=== PATIENT | female | born 1960 | race Caucasian/White ===

== ENCOUNTER 2017-04-17 15:45 | Inpatient (IN) | payer OTHER ==
[~2017-04-17] VITALS: Ht 157.5 cm; Wt 81.4 kg
[2017-04-17 17:13] LABS: BASOPHIL % 0.2 % (0-2); PLATELET COUNT 256 x10^3mcL (130-400)
[2017-04-17 17:14] LABS: RED CELL DISTRIBUTION WIDTH 23.3 % (11.5-14.5)
[2017-04-17 17:15] LABS: CALCIUM 8.7 mg/dL (8.5-10.1); CHLORIDE SERUM 105 mmol/L (98-107); CREATININE SERUM 0.6 mg/dL (0.6-1.0); GFR1 > 60 mL/min; GLUCOSE SERUM 97 mg/dL (74-106); POTASSIUM SERUM 3.9 mmol/L (3.5-5.1); SODIUM SERUM 142 mmol/L (136-145)
[2017-04-17 17:21] LABS: ALBUMIN 3.4 g/dL (3.4-5.0); ALKALINE PHOSPHATASE 68 U/L (46-116); ALT/SGPT 17 U/L (14-59); AST/SGOT 11 U/L (15-37); BILIRUBIN TOTAL 0.3 mg/dL (0.20-1.00); TOTAL PROTEIN, SERUM 7.5 g/dL (6.4-8.2)
[2017-04-17 18:53] LABS: MAGNESIUM 2.1 mg/dL (1.8-2.4); PHOSPHOROUS 3.3 mg/dL (2.5-4.9)
[2017-04-17 18:56] LABS: CHOLESTEROL/HDL RATIO 2.8
[2017-04-17 19:00] LABS: T3 TOTAL 1.25 ng/mL
[2017-04-17 19:06] LABS: FREE T4 0.97 ng/dL (0.76-1.46); FREE THYROXINE INDEX 3.1 ug/dL (1.4-4.5); T4(THYROXINE) 9.6 ug/dL (4.7-13.3)
[2017-04-17 19:32] VITALS: BP 181/98
[2017-04-17 21:10] VITALS: BP 176/85
[2017-04-18 00:01] LABS: microscopic required? NO
[2017-04-18 00:17] LABS: UA SPECIFIC GRAVITY <=1.005 (1.005-1.035); urine erythrocyte NEGATIVE (NEGATIVE)
[2017-04-18 00:25] LABS: AMPHETAMINE QUAL UR NONE DETECTED (NEG <=1000)
[2017-04-18 05:43] VITALS: BP 120/62
[2017-04-18 06:34] LABS: CALCIUM 8.7 mg/dL (8.5-10.1); CARBON DIOXIDE 25.5 mmol/L (21-32); CHLORIDE SERUM 109 mmol/L (98-107); CREATININE SERUM 0.6 mg/dL (0.6-1.0); GFR1 > 60 mL/min; GLUCOSE SERUM 89 mg/dL (74-106); POTASSIUM SERUM 4.1 mmol/L (3.5-5.1); SODIUM SERUM 144 mmol/L (136-145)
[2017-04-18 06:50] LABS: TOTAL IRON BINDING CAPACITY 416 ug/dL (250-450)
[2017-04-18 06:51] LABS: IRON 31 ug/dL (50-170)
[2017-04-18 08:12] LABS: BASOPHIL % 0.5 % (0-2); PLATELET COUNT 224 x10^3mcL (130-400)
[2017-04-18 08:14] LABS: RED CELL DISTRIBUTION WIDTH 23.5 % (11.5-14.5)
[2017-04-18 08:15] LABS: rbc morphology (normal/abnorm) ABNORMAL (NORMAL)
[2017-04-18 08:55] LABS: RED BLOOD CELLS 4.53 M/mm3 (4.10-5.10)
[2017-04-18 09:15] VITALS: BP 128/85
[2017-04-18 13:51] VITALS: BP 125/67
[2017-04-18] MEDS ORDERED: OMEPRAZOLE20 M4 PO (14:05)
[2017-04-18] MEDS ORDERED: GOOD SENSE ASPI81 M3 PO (14:10)
[2017-04-18 14:28] VITALS: BP 125/67
== END 2017-04-18 15:27 | disposition home or self-care (01) | DRG 392 ==
LOC: ED 15:45 → DU 17:55
PROVIDERS: Emergency Medicine Emergency Medical Services; ADMIT Family Medicine
DX: K21.9 Gastro-esophageal reflux disease without esophagitis (principal); D50.9 Iron deficiency anemia, unspecified; Z82.3 Family history of stroke; Z82.49 Family history of ischemic heart disease and other diseases of the circulatory system; Z87.891 Personal history of nicotine dependence
CPT/HCPCS: 83880; 84439; 85378; J7030; Q0092